=== PATIENT | female | born 1975 | race Caucasian/White ===

== ENCOUNTER 2018-04-12 05:56 | Emergency (ER) | payer OTHER, SELFPAY ==
[2018-04-12] MEDS ORDERED: HYDROCODONE/CHLORPHEN 5 ML/OSYR ONE (06:44)
[2018-04-12] MEDS ORDERED: DIAZEPAM 2 MG TABLET ONE (06:44)
[2018-04-12 07:14] LABS: Urine Blood 2+ (NEG); Urine Glucose NEGATIVE (NEG); Urine Protein TRACE (NEG); Urine Specific Gravity >1.030 (1.005-1.030)
[2018-04-12 07:18] LABS: Urine Culture Reflex Order REFLEXED
[2018-04-12 07:19] LABS: Urine Bacteria <20 /HPF (<20); Urine Mucus 2+ /HPF (NONE SEEN); Urine RBC <5 /HPF (NONE SEEN)
--- NOTE | 2018-04-12 08:10 | RAD REPORT ---
EXAM DESCRIPTION: CT - Stone Protocol - 04/12/2018 6:49 am CLINICAL HISTORY: Flank pain. FLANK PAIN COMPARISON: No comparisons TECHNIQUE: Axial images were obtained without oral or IV contrast. Lack of contrast limits solid org an and vascular assessment. The [id number] spans the entirety of the system partially obscuring uppermost abdomen and lung bases. Coronal reformatted images were obtained and reviewed. All CT scans are performed using dose optimization technique as appropriate and may include automated exposure control or mA/KV adjustment according to patient size. FINDINGS: The lower lung briscoe are clear. Cholecystectomy clips. Imaged portions of the liver and spleen show no suspicious findings on non-contrast imaging. The panc reas and adrenal glands are normal. No pathologic lymphadenopathy in the abdomen or pelvis. No urinary tract stones or obstructive uropathy. No bowel obstruction, free air, free fluid or abscess. Normal appendix noted. No significant bony abnormality. IMPRESSION: No urinary tract stones or obstructive uropathy.
--- NOTE | 2018-04-12 08:29 | EDPHYS ---
Physician Documentation [facility] Name: Elsa Tapia Age: 43 yrs Sex: Female : 1975 Arrival Date: 04/12/2018 Time: 06:00 Bed 14 Private MD: ED Physician Min Henriquez HPI: 04/12 06:30 This 43 yrs old Female presents to ER via Ambulatory with complaints of Flank snw Pain. 06:30 The patient complains of pain in the left mid back. The pain does not radiate. Onset: snw The symptoms/episode began/occurred gradually, 2 week(s) ago, and became persistent. Severity of pain: At its worst the pain was moderate. The patient has been recently seen by a physician: with similar presenting complaints, last week. 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 - Social history:: Smoking status: Patient uses tobacco products, smokes one-half pack cigarettes per day. - Ebola Screening: : No symptoms or risks identified at this time. ROS: 06:30 Constitutional: Negative for fever, chills, and weight loss, Eyes: Negative for injury, snw pain, redness, and discharge, ENT: Negative for injury, pain, and discharge, Neck: Negative for injury, pain, and swelling, Cardiovascular: Negative for chest pain, palpitations, and edema, Respiratory: Negative for shortness of breath, cough, wheezing, and pleuritic chest pain, Abdomen/GI: Negative for abdominal pain, nausea, vomiting, diarrhea, and constipation, : Negative for injury, bleeding, discharge, and swelling, MS/Extremity: Negative for injury and deformity, Skin: Negative for injury, rash, and discoloration, Neuro: Negative for headache, weakness, numbness, tingling, and seizure, Psych: Negative for depression, anxiety, suicide ideation, homicidal ideation, and hallucinations. 06:30 Back: Positive for injury or acute deformity, decreased range of motion, pain with movement, flank pain, on the left. Exam: 06:29 Constitutional: This is a well developed, well nourished patient who is awake, alert, snw and in no acute distress. Head/Face: Normocephalic, atraumatic. Eyes: Pupils equal round and reactive to light, extra-ocular motions intact. Lids and lashes normal. Conjunctiva and sclera are non-icteric and not injected. Cornea within normal limits. Periorbital areas with no swelling, redness, or edema. ENT: Nares patent. No nasal discharge, no septal abnormalities noted. Tympanic membranes are normal and external auditory canals are clear. Oropharynx with no redness, swelling, or masses, exudates, or evidence of obstruction, uvula midline. Mucous membranes moist. Neck: Trachea midline, no thyromegaly or masses palpated, and no cervical lymphadenopathy. Supple, full range of motion without nuchal rigidity, or vertebral point tenderness. No Meningismus. Chest/axilla: Normal chest wall appearance and motion. Nontender with no deformity. No lesions are appreciated. Cardiovascular: Regular rate and rhythm with a normal S1 and S2. No gallops, murmurs, or rubs. Normal PMI, no JVD. No pulse deficits. Respiratory: Lungs have equal breath sounds bilaterally, clear to auscultation and percussion. No rales, rhonchi or wheezes noted. No increased work of breathing, no retractions or nasal flaring. Abdomen/GI: Soft, non-tender, with normal bowel sounds. No distension or tympany. No guarding or rebound. No evidence of tenderness throughout. Skin: Warm, dry with normal turgor. Normal color with no rashes, no lesions, and no evidence of cellulitis. MS/ Extremity: Pulses equal, no cyanosis. Neurovascular intact. Full, normal range of motion. Neuro: Awake and alert, GCS 15, oriented to person, place, time, and situation. Cranial nerves II-XII grossly intact. Motor strength 5/5 in all extremities. Sensory grossly intact. Cerebellar exam normal. Normal gait. Psych: Awake, alert, with orientation to person, place and time. Behavior, mood, and affect are within normal limits. 06:29 Back: pain, that is moderate, of the left mid back, ROM is painful, CVA tenderness, that is mild, that is moderate, muscle spasm, is appreciated in the left mid back. Vital Signs: 06:07 BP 121 / 75; Pulse 70; Resp 18; Temp 98(O); Pulse Ox 99% on R/A; Weight 96.16 kg (R); ak1 Height 5 ft. 3 in. (160.02 cm) (R); Pain 10/10; 06:07 Body Mass Index 37.55 (96.16 kg, 160.02 cm) ak1 MDM: 06:16 Patient medically screened. snw 08:30 Data reviewed: vital signs, nurses notes. Data interpreted: Pulse oximetry: on room air snw is 99 %. Interpretation: normal. Counseling: I had a detailed discussion with the patient and/or guardian regarding: the historical points, exam findings, and any diagnostic results supporting the discharge/admit diagnosis, lab results, radiology results, the need for outpatient follow up, to return to the emergency department if symptoms worsen or persist or if there are any questions or concerns that arise at home. Special discussion: Based on the history and exam findings, there is no indication for further emergent testing or inpatient evaluation. I discussed with the patient/guardian the need to see the primary care provider for further evaluation of the symptoms. 04/12 06:17 Order name: Urine Dipstick--Ancillary (enter results); Complete Time: 07:14 ds4 04/12 06:18 Order name: Urine Microscopic Only; Complete Time: 07:27 snw 04/12 06:19 Order name: CT Stone Protocol; Complete Time: 08:13 snw 04/12 07:20 Order name: Urine Culture EDWY 04/12 06:18 Order name: Urine Dipstick-Ancillary (obtain specimen); Complete Time: 06:22 snw Administered Medications: 06:40 Drug: Valium 2 mg Route: PO; jb4 06:40 Drug: Tussionex Pennkinetic ER 5 ml Route: PO; jb4 Disposition: 04/12/18 08:28 Discharged to Home. Impression: Muscle spasm of back. - Condition is Stable. - Discharge Instructions: Muscle Cramps and Spasms, Back Exercises, [id number], Heat Therapy, Back Exercises. - Prescriptions for Diclofenac Sodium 75 mg Oral Tablet Sustained Release - take 1 tablet by ORAL route 2 times per day; 30 tablet. orphenadrine citrate 100 mg Oral Tablet Sustained Release - take 1 tablet by ORAL route 2 times per day As needed; 20 tablet. - Work release form, Medication Reconciliation Form, Thank You Letter, Antibiotic Education, Prescription Opioid Use form. - Follow up: Private Physician; When: 2 - 3 days; Reason: Recheck today's complaints, Continuance of care, Re-evaluation by your physician. Follow up: Emergency Department; When: As needed; Reason: Worsening of condition. Addendum: 04/15/2018 10:38 Co-signature as Attending Physician, Min Henriquez MD. g s Signatures: Dispatcher [employer] EDMS Mónica Gross, SATURATION EQUIPMENT OPERATOR-C SATURATION EQUIPMENT OPERATOR-Csnw Mansi Gilbert, RN RN iw Gina Garcia, RN RN ak1 Eleazar Estevez RN RN jb4 Min Henriquez MD MD gs Corrections: (The following items were deleted from the chart) 04/12 09:01 08:28 04/12/2018 08:28 Discharged to Home. Impression: Muscle spasm of back. Condition iw is Stable. Forms are Medication Reconciliation Form, Thank You Letter, Antibiotic Education, Prescription Opioid Use. Follow up: Private Physician; When: 2 - 3 days; Reason: Recheck today's complaints, Continuance of care, Re-evaluation by your physician. Follow up: Emergency Department; When: As needed; Reason: Worsening of condition. snw
--- NOTE | 2018-04-12 08:29 | ER ---
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 pt denies urine s/s. pt stated she has been taking laxatives for 2 weeks with normal BM. Transition of care: patient was not received from another setting of care. Onset of symptoms is unknown. Risk Assessment: Do you want to hurt yourself or someone else? Patient reports no desire to harm self or others. Initial Sepsis Screen: Does the patient meet any 2 criteria? No. Patient's initial sepsis screen is negative. Does the patient have a suspected source of infection? No. Patient's initial sepsis screen is negative. Care prior to arrival: None. 06:07 Method Of Arrival: Ambulatory ak1 06:07 Acuity: LINDA 3 ak1 Triage Assessment: 06:10 General: Appears uncomfortable, Behavior is calm, cooperative. 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 - Social history:: Smoking status: Patient uses tobacco products, smokes one-half pack cigarettes per day. - Ebola Screening: : No symptoms or risks identified at this time. Screenin:10 Abuse screen: Denies threats or abuse. Denies injuries from another. Nutritional ak1 screening: No deficits noted. Tuberculosis screening: No symptoms or risk factors identified. Fall Risk None identified. Assessment: 06:16 General: Appears in no apparent distress. uncomfortable, Behavior is calm, cooperative, jb4 appropriate for age. Pain: Complains of pain in posterior aspect of left lateral abdomen and anterior aspect of left lateral abdomen Pain does not radiate. Pain currently is 10 out of 10 on a pain scale. Quality of pain is described as sharp, stabbing, Pain began 1 day ago. Neuro: Level of Consciousness is awake, alert, obeys commands, Oriented to person, place, time, situation. Cardiovascular: Patient's skin is warm and dry. Respiratory: Airway is patent Respiratory effort is even, unlabored, Respiratory pattern is regular, symmetrical. GI: No signs and/or symptoms were reported involving the gastrointestinal system. Patient currently denies nausea, vomiting. : No signs and/or symptoms were reported regarding the genitourinary system. Denies burning with urination, discharge, pain urinary frequency. EENT: No signs and/or symptoms were reported regarding the EENT system. Derm: Skin is intact, Skin is pink, warm \T\ dry. Musculoskeletal: Circulation, motion, and sensation intact. Vital Signs: 06:07 BP 121 / 75; Pulse 70; Resp 18; Temp 98(O); Pulse Ox 99% on R/A; Weight 96.16 kg (R); ak1 Height 5 ft. 3 in. (160.02 cm) (R); Pain 10/10; 06:07 Body Mass Index 37.55 (96.16 kg, 160.02 cm) ak1 ED Course: 06:00 Patient arrived in ED. es 06:01 Eleazar Estevez, RN is Primary Nurse. jb4 06:08 Triage completed. ak1 06:10 Arm band placed on Patient placed in an exam room, on a stretcher, on pulse oximetry, ak1 Patient notified of wait time. 06:10 Patient has correct armband on for positive identification. Bed in low position. Call ak1 light in reach. Side rails up X 1. Pulse ox on. NIBP on. 06:16 Mónica Gross FNP-C is PHCP. snw 06:16 Min Henriquez MD is Attending Physician. snw 06:50 CT Stone Protocol In Process Unspecified. EDMS 07:31 Primary Nurse role handed off by Eleazar Estevez RN sg 07:31 Vincenzo Parish RN is Primary Nurse. sg 09:00 No provider procedures requiring assistance completed. Patient did not have IV access sg during this emergency room visit. Administered Medications: 06:40 Drug: Valium 2 mg Route: PO; jb4 06:40 Drug: Tussionex Pennkinetic ER 5 ml Route: PO; jb4 Outcome: 08:28 Discharge ordered by MD. arrington 09:00 Discharged to home ambulatory, with friend. sg 09:00 Condition: good 09:00 Discharge instructions given to patient, Instructed on discharge instructions, follow up and referral plans. no drinking with medication, no driving heavy equipment, medication usage, safety practices, Demonstrated understanding of instructions, follow-up care, medications, Prescriptions given X 2. 09:01 Patient left the ED. iw Signatures: Dispatcher [employer] Vincenzo Davis, RN RN sg Mónica Gross, MANUFACTURING ENGINEERING DIRECTOR-C MANUFACTURING ENGINEERING DIRECTOR-Csnw Karen Blankenship Irene, RN RN Gina Grimm RN RN ak1 Eleazar Estevez, RN RN jb4
== END 2018-04-12 09:01 | disposition home or self-care (01) ==
LOC: ER 05:56
DX: M62.830 Muscle spasm of back (principal); F17.210 Nicotine dependence, cigarettes, uncomplicated; Z88.0 Allergy status to penicillin
CPT/HCPCS: 74176; 76377; 81003; 81015; 87086; 87088; 99284

== ENCOUNTER 2025-02-24 12:13 | Emergency (ER) | payer BC ==
--- OUTSIDE RECORDS SUMMARY | 2025-02-24 12:17 | XMS REPORT | Clinical Summary ---
Author Name Unknown Organization [facility] Address [address] [place] [address] Care Team Providers Care Rubber Tester Name Role Phone Haley Tay MD Primary Care Provider [phone] Jyoti Headley RN Unavailable [phone] Allergies Active Allergy Reactions Criticality Noted Date Comments Penicillin Rash Low 08/22/2024 Medications sucralfate (Carafate) 100 mg/mL suspensionIndic ations:Dysphagi a Swish and swallow 10 mL (1,000 mg) 4 (four) times a day before meals and nightly. 414 mL 08/22/2024 Active Encounters Date Type Department Care Team Description 09/05/2024 Documentation [facility] [address] [place] [address], 7th Floor Elevator [place] [phone] Jyoti Headley, BIANKA Nurse Navigation 09/04/2024 Telephone [facility] [address] [place] [address], 7th Floor Elevator [place] [phone] Jyoti Headley RN Nurse Navigation 09/03/2024 Orders Only [facility] [address] [place] [address], [facility] Floor Elevator [place] [phone] Maria Alejandra Pérez APRN Adenocarcinoma of esophagus (Primary Dx) 08/28/2024 Lab Requisition [facility] Ranjeet Hinkle MD Gauthier, Jerry Wayne, MD 08/26/2024 Telephone [facility] [address] [facility] [address], 7th [place] [address] Jyoti Headley, RN Nurse Navigation 08/22/2024 9:43 AM CDT - 08/22/2024 12:54 PM CDT [facility] [address] [facility] Main [facility], 1st [place] [address] Johnathan Brady MD Dysphagia (Primary Dx); Chest pain, not otherwise specified; EKG: right bundle branch block Discharge Disposition: Home 08/22/2024 Travel after 02/25/2024 Social History Tobacco Use Types Packs/Day Years Used Date Smoking Tobacco: Never Assessed Comments No Sex and Gender Information Value Date Recorded Sex Assigned at Not on file Legal Sex Female 9:29 AM CDT Gender Identity Not on file Sexual Orientation Not on file Last Filed Vital Signs Vital Sign Reading Time Taken Comments Blood Pressure 126/71 08/22/2024 12:36 PM CDT Pulse 63 08/22/2024 12:36 PM CDT Temperature 36.6 °C (97.9 °F) 08/22/2024 1 2:36 PM CDT Respiratory Rate 18 08/22/2024 12:3 6 PM CDT Oxygen Saturation 97% 08/22/2024 12: 36 PM CDT Inhaled Oxygen Concentration - - Weight 104.4 kg (230 lb 2.6 oz) 08/22/2024 9:36 AM CDT Height - - Body Mass Index - - Plan of Treatment Health Maintenance Due Date Last Done Comments Pneumococcal Vaccine: 50+ Years (1 of 1 - PCV) 023 COVID-19 Vaccine ( - season) 2025 Influenza Vaccine (#1) 2025 Procedures Procedure Name Priority Date/Time Associated Diagnosis Comments XR CHEST 1 VW Routine 08/22/2024 11:34 AM CDT POC TROPONIN I Routine 08/22/2024 10:53 AM CDT .CBC Routine 08/22/2024 10:37 AM CDT D DIMER Routine 08/22/2024 10:37 AM CDT APTT Routine 08/22/2024 10:37 AM CDT PROTHROMBIN TIME Routine 08/22/2024 10:3 7 AM CDT NT PRO BNP Routine 08/22/2024 10:37 AM CDT CARDIAC PANEL Routine 08/22/2024 10:37 AM CDT PHOSPHORUS LEVEL Routine 08/22/2024 10:3 7 AM CDT MAGNESIUM LEVEL Routine 08/22/2024 10:37 AM CDT COMPREHENSIVE METABOLIC PANEL Routine 08/22/2024 10:37 AM CDT COMPLETE BLOOD COUNT W/ DIFFERENTIAL Routine 08/22/2024 10:37 AM CDT EKG, 12-LEAD (PORTABLE) STAT 08/22/2024 PATHOLOGY OUTSIDE INTERPRETATION Routine 08/13/2024 after 02/25/2024 Results * X-ray Chest 1 View (08/22/2024 11:34 AM CDT) Anatomical Region Laterality Modality Chest Digital Radiogra phy 08/22/2024 11:4 7 AM CDT Impressions 08/22/2024 11:48 AM CDT Clear lungs ACTIONABLE ITEMS/RECOMMENDATIONS*: None. *An Actionable Finding is a finding that may be unrelated to the original reason for imaging but potentially actionable, meaning further investigation may be necessary. The Actionable Findings Vigilance Unit (AFVU) assists medical providers with responding to additional radiologic findings that are unexpected and potentially actionable. Narrative 08/22/2024 11:48 AM CDT FULL RESULT: Examination: XR CHEST 1 VW on 08/22/2024 11:34 AM. Clinical History: Dysphagia Chest pain, not otherwise specified EKG: right bundle branch block Indication: Other:, Chest pain/Shortness of Breath Comparison: None Technique: Frontal radiograph of the chest Findings: Support Apparatus: None. Lungs/Pleura/Mediastinum: The heart size is normal. The lungs are clear. The right paratracheal opacity is prominent which may be related to portable technique. PA and lateral chest radiographs may better evaluate if clinically indicated. Procedure Note Leeanne Chinchilla MD - 08/22/2024 FULL RESULT: Examination: XR CHEST 1 VW on 08/22/2024 11:34 AM. Clinical History: Dysphagia Chest pain, not otherwise specified EKG: right bundle branch block Indication: Other:, Chest pain/Shortness of Breath Comparison: None Technique: Frontal radiograph of the chest Findings: Support Apparatus: None. Lungs/Pleura/Mediastinum: The heart size is normal. The lungs are clear.The right paratracheal opacity is prominent which may be related toportable technique. PA and lateral chest radiographs may better evaluateif clinically indicated. IMPRESSION: Clear lungs ACTIONABLE ITEMS/RECOMMENDATIONS*: None. *An Actionable Finding is a finding that may be unrelated to the originalreason for imaging but potentially actionable, meaning furtherinvestigation may be necessary. The Actionable Findings Vigilance Unit(AFVU) assists medical providers with responding to additional radiologicfindings that are unexpected and potentially actionable. Johnathan Brady MD IM DIAGNOSTIC IMAGING ORDERA BLES Final Result * POC Troponin I (EC Only) (08/22/2024 10:53 AM CDT) POC CTNI <0.04 0.00 - 0.08 ng/mL 08/22/2024 10:58 AM CDT [facility] Comment: Result is outside of instrument's reportable range. For results not consistent with patient's clinical condition, it is recommended to confirm the test result by sending a new specimen to the core laboratory where a different methodology will be employed. Blood 08/22/2024 10:5 3 AM CDT 08/22/2024 10:58 AM CDT Narrative [facility] - 08/22/2024 10:58 AM CDT This cTnI test is performed by the Nhhqy-br-Pnde analyzer method, and the result may be different from the Clinical Laboratory Method. Abnormal test results are recommended for confirmatory test by Clinical laboratory method. Patients with normal test results but clinically suspicious for acute myocardial infarction should be tested by Clinical Laboratory method. Method description: The Troponin I (cTnI) uses a two-site enzyme-linked immunosorbent assay (DENITA) method. Antibodies specific for human cardiac troponin I (cTnI) are located on an electrochemical sensor fabricated on a silicon chip. The whole blood is brought into contact with the sensors allowing the enzyme conjugate to dissolve into the sample. The enzyme bound to the antibody/antigen/antibody sandwich cleaves the substrate releasing an electrochemically detectable product. The electrochemical (amperometric) sensor measures this enzyme product which is proportional to the concentration of cTnI within the sample. us Johnathan Brady MD POCT ORDERABLES - DEVICE Jackie l Result [facility] Unless otherwise noted, all lab tests performed by: Division of Pathology and Laboratory Medicine [address] [place] [id number] * .CBC (08/22/2024 10:37 AM CDT) White Blood Cell 7.7 4.1 - 10.5 K/uL 08/22/2024 11:02 AM CDT [facility] Red Blood Cell 4.67 3.99 - 5.46 M/uL 08/22/2024 11:02 AM CDT [facility] Hemoglobin 13.9 12.2 - 15.3 g/dL 08/22/2024 11:02 AM CDT [facility] Hematocrit 41.6 36.4 - 46.8 % 08/22/2024 11:02 AM CDT [facility] Mean Cell Volume 89 82 - 99 fL 08/23/19 25 11:02 AM CDT [facility] Mean Cell Hemoglobin 29.8 26.6 - 33.2 pg 08/22/2024 11:02 AM CDT [facility] Mean Cell Hemoglobin Concentration 33.4 31.1 - 35.2 g/dL 08/22/2024 11:02 AM CDT [facility] RDW-SD 39.0 37.5 - 49.7 fL 08/22/2024 11:02 AM [facility] Red Cell Diameter Width 11.9 11.6 - 15.5 % 08/22/2024 11:02 AM T [facility] Platelet 313 160 - 397 K/uL 08/22/2024 11:02 AM T [facility] Mean Platelet Volume 10.3 9.1 - 12.6 fL 08/22/2024 11:02 AM CDT [facility] INRBC 0.0 0.0 - 0.1 /100 WBC 08/22/2024 11:02 AM T [facility] Comment: The INRBC (instrument NRBC) value reflects the enumeration of nucleated red blood cells contained in a 200uL sample of whole blood analyzed by the instrument. This value may differ from the NRBC value reported in a manual differential, which is based on a 100 cell differential. Neutrophil % 55.4 43.2 - 72.7 % 08/22/2024 11:02 AM CDT [facility] Lymphocyte % 33.7 16.8 - 46.2 % 08/22/2024 11:02 AM T [facility] Monocyte % 8.7 5.1 - 12.5 % 08/22/2024 11:02 AM T [facility] Eosinophil % 1.2 0.4 - 6.3 % 08/22/2024 11:02 AM [facility] Basophil % 0.6 0.2 - 1.4 % 08/22/2024 11:02 AM T [facility] IGRE % 0.4 0.1 - 1.5 % 08/22/2024 11:02 AM [facility] Comment:The IGRE% includes M etamyelocytes, Myelocytes and Promyelocytes. Neutrophil Abs 4.27 1.95 - 7.25 K/uL 08/22/2024 11:02 AM T [facility] Lymphocyte Abs 2.60 1.01 - 3.24 K/uL 08/22/2024 11:02 AM [facility] Monocyte Abs 0.67 0.24 - 0.85 K/uL 08/22/2024 11:02 AM T [facility] Eosinophil Abs 0.09 0.02 - 0.50 K/uL 08/22/2024 11:02 AM CDT [facility] Basophil Abs 0.05 0.02 - 0.09 K/uL 08/22/2024 11:02 AM CDT [facility] IG Abs 0.03 0.01 - 0.12 K/uL 08/22/2024 11:02 AM CDT [facility] Blood Peripheral blood specimen / Unknown Venipuncture / Unknown 08/22/2024 10:37 AM CDT 08/22/2024 10:43 AM CDT us Johnathan Brady MD LAB BLOOD ORDERABLES Final Re sult [facility] Unless otherwise noted, all lab tests performed by: Division of Pathology and Laboratory Medicine [address] [place] [id number] * (ABNORMAL) Comprehensive Metabolic Panel (08/22/2024 10:37 AM CDT) Bilirubin Total 0.6 0.0 - 1.2 mg/dL 08/22/2024 11:13 AM CDT [facility] Comment:Indocyanine Green (I CG) may cause falsely elevated bilirubin results. Total and direct bilirubin must not be measured from samples containing indocyanine green. False elevation of total bilirubin can be seen in patients with IgG concentrations above 28 g/L. eGFR 83 >=60 mL/min/1. 73 sq. m 08/22/2024 11:13 AM CDT [facility] Comment: The eGFRcr is calculated with the 2020 CKD-EPI creatinine equation using creatinine, patient's age, and sex for adults 18 years of age and older. Other factors, especially muscle mass, may affect accuracy and need to be considered. According to the Kidney Disease: Improving Global Outcomes (KDIGO) CKD Work Group 2012 Clinical Practice Guideline, chronic kidney disease (CKD) is defined as the abnormalities of kidney structure or function, present for more than 3 months, with implications for health. CKD should be classified by cause, GFR category, and albuminuria category. KDIGO guidelines provide the following GFR categories. Stage / Description / GFR mL/min/1.73 m2: G1* / Normal or high / >= 90 G2* / Mildly decreased / 60-89 G3a / Mildly to moderately decreased / 45-59 G3b / Moderately to severely decreased / 30-44 G4 / Severely decreased / 15-29 G5 / Kidney failure / <15 *In the absence of evidence of kidney damage, neither G1 nor G2 fulfill criteria for CKD. Tot Protein 7.3 6.4 - 8.3 gm/dL 08/22/2024 11:13 AM CDT [facility] Calcium Level Total 9.7 8.2 - 10.2 mg/dL 08/22/2024 11:13 AM CDT [facility] Alkaline Phosphatase 73 35 - 104 U/L 08/22/2024 11:13 AM T [facility] Albumin Level 4.4 3.5 - 5.2 gm/dL 08/22/2024 11:13 AM T [facility] AST 33(H) <=32 U/L 08/22/2024 11:13 AM T [facility] ALT 35(H) <=33 U/L 08/22/2024 11:13 AM T [facility] Sodium Level 140 136 - 145 mmol/L 08/22/2024 11:13 AM T [facility] Potassium Level 3.9 3.4 - 4.5 mmol/L 08/22/2024 11:13 AM T [facility] Chloride 103 98 - 107 mmol/L 08/22/2024 11:13 AM T [facility] CO2 27 22 - 29 mmol/L 08/22/2024 11:13 AM T [facility] Anion Gap 10 4 - 14 mmol/L 08/22/2024 11:13 AM T [facility] Creatinine 0.85 0.51 - 0.95 mg/dL 08/22/2024 11:13 AM T [facility] BUN 9 6 - 23 mg/dL 08/22/2024 11:13 AM T [facility] Glucose Level 109(H) 70 - 99 mg/dL 08/22/2024 11:13 AM T [facility] Comment: Effective 12/01/15, the glucose reference intervals have been updated based on [place] Diabetes [employer] guidelines (Standards of Medical Care in Diabetes 2016. Diabetes Care 2016; 39: S13-S22). Fasting blood glucose: Normal: 70-99 mg/dL Impaired fasting glucose (increased risk for diabetes or pre-diabetes): 100-125 mg/dL Diabetes mellitus: >/=126 mg/dL Random blood glucose: Normal: 70-199 mg/dL Note: Random glucose >100 mg/dL is associated with increased risk for diabetes. Blood Peripheral blood specimen / Unknown Venipuncture / Unknown 08/22/2024 10:37 AM CDT 08/22/2024 10:43 AM CDT us Johnathan Brady MD LAB BLOOD ORDERABLES Final Re sult [facility] Unless otherwise noted, all lab tests performed by: Division of Pathology and Laboratory Medicine [address] [place] [id number] * Cardiac Panel (08/22/2024 10:37 AM CDT) Creatine Kinase 102 26 - 192 U/L 08/22/2024 11:43 AM CDT [facility] CKMB <2.0 <=5.3 ng/mL 08/22/2024 11:43 AM CDT [facility] Troponin T 7 <=19 ng/L 08/22/2024 11:43 AM CDT [facility] Comment: < 19 ng/L Suggest retest at 3 to 6 hours later to rule out myocardial infarction >= 19 to <=52 ng/L Possible myocardial injury. Suggest retest at 3 hours. - a change of < 20 ng/L, retest at 6 hours - a change of >= 20 ng/L, suggestive of myocardial infarction > 52 ng/L Suggestive of myocardial infarction Critical value will be reported when cTnT is > 52 ng/L and only reported for the first in a series. Hemolyzed specimens with Hemolysis Index >100 (100 mg/dl or moderate hemolysis) may cause interferences and falsely low results. Blood Peripheral blood specimen / Unknown Venipuncture / Unknown 08/22/2024 10:37 AM CDT 08/22/2024 10:43 AM CDT us Johnathan Brady MD LAB BLOOD ORDERABLES Final Re sult [facility] Unless otherwise noted, all lab tests performed by: Division of Pathology and Laboratory Medicine [address] [place] [id number] * aPTT (08/22/2024 10:37 AM CDT) [facility] Activated PTT 25.7 24.8 - 35.6 second(s) 08/22/2024 11:12 AM CDT [facility] Blood Peripheral blood specimen / Unknown Venipuncture / Unknown 08/22/2024 10:37 AM CDT 08/22/2024 10:42 AM CDT us Johnathan Brady MD LAB BLOOD ORDERABLES Final Re sult Performing Organization Address City/[facility] Co de Phone Number [facility] Unless otherwise noted, all lab tests performed by: Division of Pathology and Laboratory Medicine [address] [place] [id number] * NT-Pro BNP (In-House) (08/22/2024 10:37 AM CDT) [facility] NT-ProBNP 74 <=125 pg/mL 08/22/2024 11:38 AM CDT [facility] Blood Peripheral blood specimen / Unknown Venipuncture / Unknown 08/22/2024 10:37 AM CDT 08/22/2024 10:43 AM CDT us Johnathan Brady MD LAB BLOOD ORDERABLES Final Re sult [facility] Unless otherwise noted, all lab tests performed by: Division of Pathology and Laboratory Medicine [address] [place] [phone] * Prothrombin Time with INR (08/22/2024 10:37 AM CDT) [facility] Prothrombin Time 13.7 12.2 - 14.4 second(s) 08/22/2024 11:12 AM CDT [facility] International Normalization Ratio 1.08 0.91 - 1.10 08/22/2024 11:12 AM CDT [facility] Blood Peripheral blood specimen / Unknown Venipuncture / Unknown 08/22/2024 10:37 AM CDT 08/22/2024 10:42 AM CDT Johnathan Brady MD LAB BLOOD ORDERABLES Final Re sult Performing Organization Address [facility] de Phone Number [facility] Unless otherwise noted, all lab tests performed by: Division of Pathology and Laboratory Medicine [address] [place] [id number] * D-dimer (08/22/2024 10:37 AM CDT) Pathologist [facility] D-Dimer 0.45 0.10 - 0.50 mcg/ml FEU 08/22/2024 11:12 AM CDT [facility] Blood Peripheral blood specimen / Unknown Venipuncture / Unknown 08/22/2024 10:37 AM CDT 08/22/2024 10:42 AM CDT Narrative [facility] - 08/22/2024 11:12 AM CDT The cut off value for exclusion of venous thromboembolism is <0.51 mcg/mL FEUs (fibrinogen equivalent units). us Johnathan Brady MD LAB BLOOD ORDERABLES Final Re sult Performing Organization Address [facility] Co de Phone Number [facility] Unless otherwise noted, all lab tests performed by: Division of Pathology and Laboratory Medicine [address] [place] [id number] * Phosphorus Level (08/22/2024 10:37 AM CDT) Pathologist [facility] Phosphorus Level 3.2 2.5 - 4.5 mg/dL 08/22/2024 11:13 AM CDT [facility] Blood Peripheral blood specimen / Unknown Venipuncture / Unknown 08/22/2024 10:37 AM CDT 08/22/2024 10:43 AM CDT Johnathan Brady MD LAB BLOOD ORDERABLES Final Re sult Performing Organization Address [facility] de Phone Number [facility] Unless otherwise noted, all lab tests performed by: Division of Pathology and Laboratory Medicine [address] [place] [id number] * Magnesium Level (08/22/2024 10:37 AM CDT) Magnesium Level 1.9 1.6 - 2.6 mg/dL 08/22/2024 11:13 AM CDT [facility] Blood Peripheral blood specimen / Unknown Venipuncture / Unknown 08/22/2024 10:37 AM CDT 08/22/2024 10:43 AM CDT Johnathan Brady MD LAB BLOOD ORDERABLES Final Re sult Performing Organization Address [facility] de Phone Number [facility] Unless otherwise noted, all lab tests performed by: Division of Pathology and Laboratory Medicine [address] [place] [id number] * EKG, 12-Lead (Portable) (08/22/2024) Johnathan Brady MD ECG ORDERABLES Final Result Performing Organization Address [facility] de Phone Number [facility] IECG * Pathology Outside Interpretation (08/13/2024) Materials Received Accession#, Stained, Block, Unstained Collected Received A. [id number], 7 SS, 0 BLOCKS, 0 USS 08/13/2024 08/28/2024 08/29/2024 2:06 PM CDT [facility] Diagnosis Seven outside slides ([id number], collected on 08/13/2024): Esophagus, distal, biopsy: INVASIVE, POORLY DIFFERENTIATED ADENOCARCINOMA, ARISING IN DISTINCTIVE-TYPE MONAE MUCOSA. (SEE COMMENT) 08/29/2024 2:06 PM CDT [facility] at 1406 CDT Comment Immunohistochemical studies were performed at the outside institution and reviewed at [facility]. The tumor shows preserved nuclear expression of MLH1, PMS2, MSH2 and MSH6. Therefore, the likelihood of defective DNA mismatch repair/high levels of microsatellite instability (MSI-H) in the tumor is low. 08/29/2024 2:06 PM CDT [facility] Biomarker Block(s) Block for biomarker testing: A1 08/29/2024 2:06 PM CDT [facility] Disclaimer "Some tests reported here may have been developed and performance characteristics determined by [facility]. These tests have not been specifically cleared or approved by the U.S. Food and Drug Administration. If applicable, controls were reviewed and showed appropriate reactivity." 08/29/2024 2:06 PM CDT [facility] Tissue 08/13/2024 08/28/2024 4:3 1 PM CDT us Frankie Anglin MD LAB PATHOLOGY ORDERABLES Final Result [place] [address], after 02/25/2024 Care Teams Rubber Tester Relationship Specialty Start Date End Date Haley Tay MD [address] [place] [id number] [email or web address] - General Gastrointestinal Medical Oncology 08/26/24 Jyoti Headley RN [address] [place] [id number] [email or web address] Intake Nurse Navigator Nursing 08/26/24 09/04/24
--- NOTE | 2025-02-24 14:07 | RAD REPORT ---
EXAM: AP view(s) of the abdomen Abdomen 1 View (KUB) HISTORY: G tube evaluation COMPARISON: None IMPRESSION: Contrast administration into the patient's gastrostomy tube present within the stomach lumen which wo uld suggest an intragastric position of the tip.
--- NOTE | 2025-02-24 14:32 | EDPHYS ---
Physician Documentation [facility] – [place], [place] Name: Elsa Tapia Age: 50 yrs Sex: Female : 1975 Arrival Date: 02/24/2025 Time: 12:13 Bed 16 Private MD: ED Physician Con Donnelly HPI: 02/24 16:25 This 50 yrs old Female presents to ER via Ambulatory with complaints of Gtube issue. ms3 16:25 50-year-old female with past medical history of esophageal and liver cancer, hepatitis ms3 B, chemotherapy presents to the emergency department for concerns of dislocated gastrostomy tube. Patient states she feels a mass where her gastrostomy tube enters her abdomen and she spoke with her physician and they are concerned the tube is not in her stomach. Patient denies any alleviating or inciting factors.. 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 - Social history:: Smoking status: Reported history of juuling and/or vaping. ROS: 16:25 Constitutional: Negative for fever, and chills. Cardiovascular: Negative for chest ms3 pain, and palpitations. Respiratory: Negative for shortness of breath, cough, wheezing, and pleuritic chest pain, 16:25 Abdomen/GI: Positive for Reviewed tube site pain, Exam: 16:25 Constitutional: This is a well developed, well nourished patient who is awake, alert, ms3 and in no acute distress. Cardiovascular: Regular rate and rhythm with a normal S1 and S2. No gallops, murmurs, or rubs. Normal PMI, no JVD. No pulse deficits. Respiratory: Lungs have equal breath sounds bilaterally, clear to auscultation and percussion. No rales, rhonchi or wheezes noted. No increased work of breathing, no retractions or nasal flaring. 16:25 Abdomen/GI: Gastrostomy tube in place without discharge or surrounding erythema, Vital Signs: 12:39 BP 151 / 118; Pulse 94; Resp 16; Temp 98.2; Pulse Ox 100% on R/A; Weight 74.12 kg; dd2 Height 5 ft. 3 in. ; Pain 10/10; 12:39 Body Mass Index 28.94 (74.12 kg, 160.02 cm) dd2 12:39 Pain Scale: Adult dd2 MDM: 13:19 Medical Screening Exam initiated ms3 16:25 Differential diagnosis: G-tube malposition. Data reviewed: vital signs, radiologic ms3 studies, and as a result, I will discharge patient. Independent interpretation of the following test(s) in the Emergency Department X-Ray: My interpretation is Abdominal series with G-tube contrast images revealed by me shows gastrostomy tube to be in correct position. Counseling: I had a detailed discussion with the patient and/or guardian regarding the historical points, exam findings, and any diagnostic results supporting the discharge/admit diagnosis, radiology results, the need for outpatient follow up, to return to the emergency department if symptoms worsen or persist or if there are any questions or concerns that arise at home. Special discussion: I discussed with the patient/guardian in detail that at this point there is no indication for admission to the hospital. It is understood, however, that if the symptoms persist or worsen the patient needs to return immediately for re-evaluation. ED course: Discussed radiology report with the patient and her . Patient to follow-up with her primary care physician 2 to 3 days. Patient and her understand and agree with plan. All questions were answered. Return precautions were discussed include worsening symptoms, or any other concerns.. 02/24 13:19 Order name: Abdomen 1 View (KUB) XRAY: Contrast through G tube; Complete Time: 14:15 ms3 Administered Medications: No medications were administered Disposition Summary: 02/24/25 14:31 Discharge Ordered Notes: Location: Home ms3 Condition: Stable ms3 Diagnosis - Gastrostomy tube pain ms3 Followup: ms3 - With: Private Physician - When: 2 - 3 days - Reason: Recheck today's complaints Discharge Instructions: - Discharge Summary Sheet ms3 - Gastrostomy Tube Home Guide, Adult ms3 Forms: - Medication Reconciliation Form ms3 - Antibiotic Education ms3 - Prescription Opioid Use ms3 - Patient Portal Instructions ms3 - Leadership Thank You Letter ms3 Signatures: Dispatcher [employer] EDMS DonnellyCon frey DO DO ms3 RASHAWN NAZARIO, RN RN dd2 Sabine Reyes, RN RN km10
--- NOTE | 2025-02-24 14:32 | ER ---
Nurse's Notes [facility] Name: Elsa Tapia Age: 50 yrs Sex: Female : 1975 Arrival Date: 02/24/2025 Time: 12:13 Bed 16 Private MD: Diagnosis: Gastrostomy tube pain Presentation: 02/24 12:39 Chief complaint: Patient states: PAIN AROUND GTUBE SITE X2 DAYS. PT DENIES PAIN WITH dd2 FEEDING OR FLUSHING, FEELS SWELLING TO AREA AROUND GTUBE. PT REPORTS WAS SENT HERE BY MD FOR EVALUATION OFF TUBE AND PLACEMENT. Coronavirus screen: At this time, the client does not indicate any symptoms associated with coronavirus-19. Ebola Screen: No symptoms or risks identified at this time. Initial Sepsis Screen: Does the patient meet any 2 criteria? No. Patient's initial sepsis screen is negative. Does the patient have a suspected source of infection? No. Patient's initial sepsis screen is negative. Risk Assessment: Do you want to hurt yourself or someone else? Patient reports no desire to harm self or others. Onset of symptoms was February 22, 2025. 12:39 Method Of Arrival: Ambulatory dd2 12:39 Acuity: LINDA 3 dd2 Triage Assessment: 12:42 General: Appears in no apparent distress. uncomfortable, Behavior is calm, cooperative, dd2 appropriate for age. Pain: Complains of pain in left upper quadrant. GI: Abd is soft X 4 quads Abdomen is tender to palpation in left upper quadrant Reports upper abdominal pain. 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 - Social history:: Smoking status: Reported history of juuling and/or vaping. Screenin:57 [facility] ED Fall Risk Assessment (Adult) History of falling in the last 3 months, km10 including since admission No falls in past 3 months (0 pts) Confusion or Disorientation No (0 pts) Intoxicated or Sedated No (0 pts) Impaired Gait No (0 pts) Mobility Assist Device Used No (0 pt) Altered Elimination No (0 pt) Score/Fall Risk Level 0 - 2 = Low Risk Oriented to surroundings, Maintained a safe environment, Educated pt \T\ family on fall prevention, incl call for assistance when getting out of bed, Assessed \T\ reinforced patient's understanding of fall precautions. Abuse screen: Denies threats or abuse. Denies injuries from another. Nutritional screening: No deficits noted. Tuberculosis screening: No symptoms or risk factors identified. Assessment: 12:54 General: Appears in no apparent distress. Behavior is calm, cooperative, appropriate km10 for age. Pain: Complains of pain in left lower quadrant Pain currently is 3 out of 10 on a pain scale. Quality of pain is described as tender. Neuro: Level of Consciousness is awake, alert, obeys commands, Oriented to person, place, time, situation, Appropriate for age Gait is steady. Respiratory: Airway is patent Respiratory effort is even, unlabored, Respiratory pattern is regular, symmetrical. GI: PEG tube clamped. Site reddened. Site with drainage. scant drainage, localized redness, pt explains this amount of drainage has been the same since having g tube placed in November, no worsening in drainage Reports g tube flushes with ease. She explains she is here in ED because she feels like the baloon has shifte and feels a buldge right above the site. Vital Signs: 12:39 BP 151 / 118; Pulse 94; Resp 16; Temp 98.2; Pulse Ox 100% on R/A; Weight 74.12 kg; dd2 Height 5 ft. 3 in. ; Pain 10/10; 12:39 Body Mass Index 28.94 (74.12 kg, 160.02 cm) dd2 12:39 Pain Scale: Adult dd2 ED Course: 12:15 Patient arrived in ED. im 12:41 Triage completed. dd2 12:42 Arm band placed on right wrist. dd2 12:45 Sabine Reyes, BIANKA is Primary Nurse. km10 12:48 Con Donnelly DO is Attending Physician. ms3 12:57 Patient has correct armband on for positive identification. Bed in low position. Call km10 light in reach. Side rails up X 1. Provided Education on: plan of care. 14:00 Abdomen 1 View (KUB) XRAY: Contrast through G tube In Process Unspecified. EDMS 14:55 No provider procedures requiring assistance completed. km10 14:55 Patient did not have IV access during this emergency room visit. km10 Administered Medications: No medications were administered Medication: 14:56 VIS not applicable for this client. km10 Outcome: 14:31 Discharge ordered by . ms3 14:55 Discharged to home ambulatory, with family, km10 14:55 Condition: stable 14:55 Discharge instructions given to patient, family, Instructed on discharge instructions, follow up and referral plans. Demonstrated understanding of instructions, follow-up care, 14:56 Patient left the ED. km10 Signatures: Dispatcher [employer] EDMS Con Donnelly DO DO ms3 Caterina Tarango DIANA RN RN dd2 Sabine Reyes RN RN km10 Corrections: (The following items were deleted from the chart) 12:59 12:54 GI: PEG tube clamped. Site reddened. Site with drainage. scant drainage, pt km10 explains this amount of drainage has been the same since having g tube placed in November, no worsening in drainage km10 13:00 12:54 GI: PEG tube clamped. Site reddened. Site with drainage. scant drainage, pt km10 explains this amount of drainage has been the same since having g tube placed in November, no worsening in drainage Reports g tube flushes with ease. She explains she is here in ED because she feels like the baloon has shifte and feels a buldge right above the site km10
[2025-02-24 19:23] VITALS: BP 151/118; TEMP 98.2; O2SAT 100
== END 2025-02-24 14:56 | disposition home or self-care (01) ==
LOC: ER 12:13
DX: K94.29 Other complications of gastrostomy (principal)
CPT/HCPCS: 74018; 99282